=== PATIENT | female | born 1950 | race Caucasian/White ===

== ENCOUNTER 2021-11-20 16:26 | Inpatient (IN) | payer MEDICARE, OTHER ==
[~2021-11-20] VITALS: Ht 157.5 cm; Wt 74.9 kg
[~2021-11-20 16:26] MED LIST: ALBUTEROL SULF8.5 GM INH
[2021-11-20] MEDS ORDERED: ASPIRIN 81 MG CHEW TAB PO ONE (18:00)
[2021-11-20 18:08] LABS: BASOPHILS # (AUTO) 0.1 (0.0-0.1); BASOPHILS % 0.7 % (0.0-1.0); EOSINOPHILS # (AUTO) 0.3 (0.0-0.4); EOSINOPHILS % 2.9 % (0.0-6.0); HEMATOCRIT 40.7 % (34.2-44.1); HEMOGLOBIN 13.6 g/dL (12.0-16.0); LYMPHOCYTES # (AUTO) 2.2 (1.0-3.2); LYMPHOCYTES % 22.8 % (18.0-39.1); MEAN CORPUSCULAR HEMOGLOBIN 30.7 pg (28-32); MEAN CORPUSCULAR HGB CONC 33.4 g/dL (31-35); MEAN CORPUSCULAR VOLUME 91.9 fL (81-99); MONOCYTES # (AUTO) 0.6 (0.2-0.8); MONOCYTES % 6.8 % (4.4-11.3); NEUTROPHILS # (AUTO) 6.3 (2.1-6.9); NEUTROPHILS % 66.5 % (38.7-80.0); PLATELET COUNT 369 x10e3/uL (140-360); RED BLOOD COUNT 4.43 x10e6/uL (3.6-5.1); RED CELL DISTRIBUTION WIDTH 12.5 % (11.7-14.4)
[2021-11-20 18:29] LABS: ALANINE AMINOTRANSFERASE 20 IU/L (0-55); ALBUMIN/GLOBULIN RATIO 1.1 (0.8-2.0); ALKALINE PHOSPHATASE 72 IU/L (40-150); BLOOD UREA NITROGEN 10 mg/dL (7-26); BUN/CREATININE RATIO 11 (6-25); CALCIUM 9.3 mg/dL (8.4-10.2); CARBON DIOXIDE 26 mmol/L (22-29); CHLORIDE 104 mmol/L (98-107); CREATINE KINASE 83 IU/L (29-168); CREATININE, SERUM 0.88 mg/dL (0.57-1.11); GLUCOSE 102 mg/dL (74-118); SODIUM 141 mmol/L (136-145)
[2021-11-20] MEDS ORDERED: ONDANSETRON HCL INJ 2MG/ML 2ML 2 MG/ML VIAL IV PRN (20:00)
[2021-11-20] MEDS ORDERED: Morphine 4mg INJECTION 4 MG/ML INJ IV PRN (20:00)
[2021-11-20] MEDS ORDERED: SODIUM CHLORIDE FLUSH 10 ML SYR INJ PRN (20:00)
[2021-11-20 21:15] VITALS: BP 122/73
[2021-11-20 22:30] LABS: CREATINE KINASE MB 0.8 ng/mL (0-5.0)
[2021-11-21] VITALS: BP 109/61
[2021-11-21] MEDS ORDERED: OZEMPIC0.25 MG/0. SC (00:02)
[2021-11-21 04:00] VITALS: BP 100/60
[2021-11-21 06:37] LABS: CREATINE KINASE 64 IU/L (29-168)
[2021-11-21 08:48] VITALS: BP 100/60
[2021-11-21] MEDS: ASPIRIN 81 MG ENTERIC COATED PO SCH (09:08)
[2021-11-21] MEDS ORDERED: CRESTOR10 MG PO (09:18)
[2021-11-21 09:37] VITALS: BP 106/63
[2021-11-21 11:31] VITALS: BP 113/77
[2021-11-21] MEDS ORDERED: CLOPIDOGREL BISULFATE 75 MG TAB PO NR (12:15)
[2021-11-21 13:35] LABS: CREATINE KINASE 63 IU/L (29-168)
[2021-11-21] MEDS: METOPROLOL TARTRATE 25 MG TAB PO SCH (18:06)
[2021-11-21 20:00] VITALS: BP 97/53
[2021-11-21] MEDS: CRESTOR 10MG PO SCH (20:48)
[2021-11-21] MEDS: ENOXAPARIN INJ 80 MG/0.8 ML SYR SC SCH (20:49)
[2021-11-21] MEDS: TEMAZEPAM 7.5 MG CAP PO PRN (20:53)
[2021-11-22] VITALS (7 sets, daily range): BP systolic 96–105; BP diastolic 57–67
[2021-11-22 04:53] LABS: BASOPHILS # (AUTO) 0.1 (0.0-0.1); BASOPHILS % 1.2 % (0.0-1.0); EOSINOPHILS # (AUTO) 0.5 (0.0-0.4); EOSINOPHILS % 5.6 % (0.0-6.0); HEMATOCRIT 39.8 % (34.2-44.1); HEMOGLOBIN 13.2 g/dL (12.0-16.0); LYMPHOCYTES # (AUTO) 2.9 (1.0-3.2); LYMPHOCYTES % 33.8 % (18.0-39.1); MEAN CORPUSCULAR HEMOGLOBIN 30.3 pg (28-32); MEAN CORPUSCULAR HGB CONC 33.2 g/dL (31-35); MEAN CORPUSCULAR VOLUME 91.3 fL (81-99); MONOCYTES # (AUTO) 0.6 (0.2-0.8); MONOCYTES % 7.1 % (4.4-11.3); NEUTROPHILS # (AUTO) 4.5 (2.1-6.9); NEUTROPHILS % 52.1 % (38.7-80.0); PLATELET COUNT 340 x10e3/uL (140-360); RED BLOOD COUNT 4.36 x10e6/uL (3.6-5.1); RED CELL DISTRIBUTION WIDTH 12.6 % (11.7-14.4)
[2021-11-22 05:13] LABS: ALBUMIN 3.7 g/dL (3.5-5.0); ALBUMIN/GLOBULIN RATIO 1.1 (0.8-2.0); ANION GAP 13.3 mmol/L (8-16); CALCIUM 9.2 mg/dL (8.4-10.2); CHOL/HDL RATIO 2.8 (3.0-3.6); CREATININE, SERUM 0.87 mg/dL (0.57-1.11); POTASSIUM 4.3 mmol/L (3.5-5.1)
[2021-11-22 05:37] LABS: THYROID STIMULATING HORMONE 2.36 uIU/mL (0.350-4.940)
[2021-11-22] MEDS: METOPROLOL TARTRATE 25 MG TAB PO SCH ×2 (09:00→17:00)
[2021-11-22] MEDS: ENOXAPARIN INJ 80 MG/0.8 ML SYR SC SCH (09:24)
[2021-11-22] MEDS: ASPIRIN 81 MG ENTERIC COATED PO SCH (09:25)
[2021-11-22] MEDS: CLOPIDOGREL BISULFATE 75 MG TAB PO SCH (09:25)
[2021-11-22] MEDS: CRESTOR 10MG PO SCH (20:23)
[2021-11-22] MEDS: TEMAZEPAM 7.5 MG CAP PO PRN (21:37)
[2021-11-23] VITALS (15 sets, daily range): BP systolic 97–126; BP diastolic 54–80
[2021-11-23] MEDS: CLOPIDOGREL BISULFATE 75 MG TAB PO SCH (09:00)
[2021-11-23] MEDS: ASPIRIN 81 MG ENTERIC COATED PO SCH (09:00)
[2021-11-23] MEDS: METOPROLOL TARTRATE 25 MG TAB PO SCH ×2 (09:00→18:49)
[2021-11-23] MEDS ORDERED: FENTANYL CITRATE/PF 100MCG/2 ML INJ ONE (10:30)
[2021-11-23] MEDS ORDERED: MIDAZOLAM HCL 2 MG/2 ML VIAL ONE (10:30)
[2021-11-23] MEDS ORDERED: HEPARIN SOD/SOD CHLORIDE 2,000 ML ONE (10:31)
[2021-11-23] MEDS ORDERED: SODIUM CHLORIDE 0.9% 1000ML 1,000 ML ONE (10:31)
[2021-11-23] MEDS ORDERED: LIDOCAINE HCL 1% LOCAL INJ 20 ML VIAL ONE (10:31)
[2021-11-23] MEDS ORDERED: IOPAMIDOL 370 MG/ML 100 ML INFUS..BTL INJ ONE (10:31)
[2021-11-23] MEDS ORDERED: BIVALRIUDIN 250 MG/VIAL VIAL IV ONE (11:13)
[2021-11-23] MEDS ORDERED: ZOLPIDEM TARTRATE 5 MG TAB PO PRN (11:15)
[2021-11-23] MEDS ORDERED: ONDANSETRON HCL INJ 2MG/ML 2ML 2 MG/ML VIAL IV PRN (11:15)
[2021-11-23] MEDS ORDERED: ASPIRIN 325 MG TAB ONE (11:26)
[2021-11-23] MEDS ORDERED: CLOPIDOGREL BISULFATE 75 MG TAB ONE (11:26)
[2021-11-23] MEDS: CRESTOR 10MG PO SCH (21:38)
[2021-11-23] MEDS: TEMAZEPAM 7.5 MG CAP PO PRN (22:05)
[2021-11-24 00:32] VITALS: BP 89/57
[2021-11-24 05:53] LABS: BASOPHILS # (AUTO) 0.1 (0.0-0.1); EOSINOPHILS # (AUTO) 0.2 (0.0-0.4); HEMATOCRIT 38.9 % (34.2-44.1); HEMOGLOBIN 12.7 g/dL (12.0-16.0); LYMPHOCYTES % 25.2 % (18.0-39.1); MEAN CORPUSCULAR HGB CONC 32.6 g/dL (31-35); MEAN CORPUSCULAR VOLUME 94.9 fL (81-99); MONOCYTES # (AUTO) 0.6 (0.2-0.8); MONOCYTES % 7.3 % (4.4-11.3); NEUTROPHILS # (AUTO) 5.1 (2.1-6.9); NEUTROPHILS % 63.4 % (38.7-80.0); PLATELET COUNT 287 x10e3/uL (140-360); RED CELL DISTRIBUTION WIDTH 12.5 % (11.7-14.4)
[2021-11-24 06:42] LABS: ALBUMIN 3.6 g/dL (3.5-5.0); ALBUMIN/GLOBULIN RATIO 1.1 (0.8-2.0); ANION GAP 15.1 mmol/L (8-16); CALCIUM 8.5 mg/dL (8.4-10.2); CREATININE, SERUM 0.81 mg/dL (0.57-1.11); POTASSIUM 4.1 mmol/L (3.5-5.1)
[2021-11-24 08:00] VITALS: BP 106/66
[2021-11-24 08:19] VITALS: BP 106/66
[2021-11-24] MEDS ORDERED: CLOPIDOGREL BISULFATE 75 MG TAB PO SCH (09:00)
[2021-11-24] MEDS: ASPIRIN 81 MG ENTERIC COATED PO SCH (09:04)
[2021-11-24] MEDS: CLOPIDOGREL BISULFATE 75 MG TAB PO SCH (09:05)
[2021-11-24 11:00] VITALS: BP 100/65
[2021-11-24] MEDS ORDERED: PLAVIX75 MG PO (11:10)
[2021-11-24] MEDS ORDERED: ASPIRIN81 MG PO (11:16)
== END 2021-11-24 11:46 | disposition home or self-care (01) | DRG 247 ==
LOC: ER 17:02 → ERHOLD 19:55 → MED/SURG2 21:14 → OBSVTOIN 11-22 07:48 → MED/SURG3 11-22 14:27
PROC: 027034Z Dilation of Coronary Artery, One Artery with Drug-eluting Intraluminal Device, Percutaneous Approach (ICD-10-PCS; principal; 2021-11-23)
PROC: 4A023N7 Measurement of Cardiac Sampling and Pressure, Left Heart, Percutaneous Approach (ICD-10-PCS; 2021-11-23)
PROC: B2111ZZ Fluoroscopy of Multiple Coronary Arteries using Low Osmolar Contrast (ICD-10-PCS; 2021-11-23)
PROC: B2151ZZ Fluoroscopy of Left Heart using Low Osmolar Contrast (ICD-10-PCS; 2021-11-23)
DX: I24.9 Acute ischemic heart disease, unspecified (principal); I25.84 Coronary atherosclerosis due to calcified coronary lesion; I25.110 Atherosclerotic heart disease of native coronary artery with unstable angina pectoris; E78.5 Hyperlipidemia, unspecified; E11.69 Type 2 diabetes mellitus with other specified complication; Z79.899 Other long term (current) drug therapy; E78.49 Other hyperlipidemia; Z20.822 Contact with and (suspected) exposure to COVID-19; Z83.3 Family history of diabetes mellitus; Z82.49 Family history of ischemic heart disease and other diseases of the circulatory system; E78.00 Pure hypercholesterolemia, unspecified
CPT/HCPCS: 0223U; 36415; 71045; 80053; 80061; 82550; 82553; 83690; 84443; 84484; 85025; 92928; 93005; 93306; 93458; 99152; 99153; 99284; C1766; C1876; C1887; G0378; J0583; J1650; J2001; J2250; J3010; J7030; Q9967